=== PATIENT | female | born 1975 | race American Indian/Alaskan Native ===

== ENCOUNTER 2020-11-05 09:23 | Outpatient (CLI) | payer OTHER ==
--- NOTE | 2020-11-05 12:48 | Ultrasound Report ---
BILATERAL DIGITAL DIAGNOSTIC MAMMOGRAM WITH CAD CONVENTIONAL, 11/05/2020 BILATERAL LIMITED BREAST ULTRASOUND CLINICAL INFORMATION / INDICATION: The patient reports 2 lumps in the right breast for 2 weeks. TECHNIQUE: Digital bilateral mammographic imaging was performed. Limited ultrasound was performed. Th is examination was interpreted with the benefit of Computer-Aided Detection (CAD) analysis. COMPARISON: None. This is the patient's first mammogram. FINDINGS: Breast Density: There are scattered areas of fibroglandular density. MAMMOGRAPHIC FINDINGS: Right breast: There is an irregular oval mass with pleomorphic calcifications at the 10:00 position p osterior depth measuring 6.3 x 5.4 cm. This corresponds to the patient's first area of palpable carol ann rn. The second area of palpable concern is located in the right axillary tail corresponding to a alma lomeration of multiple enlarged axillary lymph nodes collectively measuring at least 8.5 x 8.0 cm. Th ere is also generalized skin thickening and trabecular thickening of the right breast. Left breast: No suspicious mass or calcification is seen in the left breast. There are multiple enlar ged left axillary lymph nodes. ULTRASOUND FINDINGS: Targeted ultrasound evaluation was performed of the area of interest. Right breast: Sonographic evaluation of the right breast at the 10:00 position 10 cm from the nipple demonstrates an oval hypoechoic mass measuring 5.5 x 4.1 cm. There is moderately associated increased vascularity. This corresponds to one of the patient's areas of palpable concern. Sonographic evaluation of the right axillary tail demonstrates a multilobulated hypoechoic irregular mass measuring 7.7 x 6.2 cm. There is moderately associated increased vascularity. Left breast/left axilla: Sonographic evaluation of the left axilla demonstrates multiple enlarged lef t axillary lymph nodes with a thickened cortex and very thin fatty hilum. The largest of these measur es 2.8 cm in length by 1.2 cm in short axis. IMPRESSION: 1. Irregular solid mass with pleomorphic calcifications at the 10:00 position in the right breast as described above which is most compatible with malignancy. There is bulky right axillary adenopathy wi th the largest conglomeration of lymph nodes measuring at least 7.7 cm. There is also generalized ski n and trabecular thickening of the right breast. Surgical consultation and biopsy of the dominant mas s is recommended. 2. Multiple enlarged contralateral left axillary lymph nodes which are also suspicious for metastatic disease. Follow up recommendation: Biopsy BI-RADS Category 5: Highly Suggestive of Malignancy. A "normal" or negative report should not discourage follow up or biopsy of a clinically significant f inding. A written summary of these findings will be mailed to the patient. The patient will be entered into a mammography reporting system which will generate a reminder letter for the patient's next appointmen t at the appropriate interval. According to the [employer], yearly mammograms are recommended starting at age 40 and continuing as long as a woman is in good health. Breast MRI is recommended for women with an gissel roximately 20-25% or greater lifetime risk of breast cancer, including women with a strong family his tory of breast or ovarian cancer and women who have been treated for Hodgkin's disease. Signer Name: Meghann Luque MD Signed: 11/05/2020 12:44 PM Workstation Name: [id number]
== END 2020-11-05 09:24 | disposition home or self-care (01) ==
LOC: US 09:23
PROVIDERS: ATTEND Surgery
DX: R92.1 Mammographic calcification found on diagnostic imaging of breast (principal); N63.11 Unspecified lump in the right breast, upper outer quadrant
CPT/HCPCS: 77066